=== PATIENT | male | born 1945 | race Hispanic/Latino ===

== ENCOUNTER 2018-05-18 14:11 | Emergency (ER) | payer BC ==
[2018-05-18 14:50] VITALS: BMI 31.6
[2018-05-18 14:54] VITALS: TEMP 97.8
--- NOTE | 2018-05-18 16:45 | RAD ---
Date of service: 05/18/2018 PROCEDURE: Pelvis and left hip HISTORY: r/o fx COMPARISON: TECHNIQUE: Three views FINDINGS: There is no evidence of fracture. There is no significant joint space narrowing. The pelvis is intact. IMPRESSION: Negative study
--- NOTE | 2018-05-18 16:47 | RAD ---
Date of service: 05/18/2018 PROCEDURE: Radiographs of the Lumbar Spine. HISTORY: r/o fx COMPARISON: No prior. FINDINGS: BONES: Normal alignment. No listhesis. No fracture. DISC SPACES: Disc degeneration at L5-S1 OTHER FINDINGS: There is facet arthropathy at L4-5 and L5-S1. IMPRESSION: Disc degeneration at L5-S1. Facet arthropathy at L4-5 and L5-S1
[2018-05-18 17:27] VITALS: BP 166/78; PULSE 62; RESP 16; O2SAT 99
--- NOTE | 2018-05-18 18:34 | ED PDOC ---
Arrival/HPI - General Chief Complaint: Back Pain Historian: Patient - History of Present Illness Narrative History of Present Illness (Text): 05/18/18 18:43 73 year old male, whose past medical history includes hypertension and cardiac disorders, who presents to the emergency department complaining of right back/hip pain over past 3-4 days. Patient is able to ambulate, but with pain. Patient states he has an appointment with Orthopedics in 3 days. Patient denies any trauma, falls, or any other complaints. Time/Duration: > week (pt notes onset as past 3-4 days) Symptom Onset: Sudden Symptom Course: Unchanged Activities at Onset: Light Past Medical History - Provider Review Nursing Documentation Reviewed: Yes - Infectious Disease Hx of Infectious Diseases: None - Cardiac Hx Cardiac Disorders: Yes Hx Hypertension: Yes - Pulmonary Hx Respiratory Disorders: No - Neurological Hx Neurological Disorder: No - HEENT Hx HEENT Disorder: No - Renal Hx Renal Disorder: No - Endocrine/Metabolic Hx Endocrine Disorders: No - Hematological/Oncological Hx Blood Disorders: No - Integumentary Hx Dermatological Disorder: No - Musculoskeletal/Rheumatological Hx Musculoskeletal Disorders: No - Gastrointestinal Hx Gastrointestinal Disorders: No - Genitourinary/Gynecological Hx Genitourinary Disorders: No - Psychiatric Hx Psychophysiologic Disorder: No Hx Substance Use: No Family/Social History - Physician Review Nursing Documentation Reviewed: Yes Family/Social History: No Known Family HX Smoking Status: Never Smoked Hx Alcohol Use: Yes Frequency of alcohol use: Daily Hx Substance Use: No Allergies/Home Meds Allergies/Adverse Reactions: Allergies No Known Allergies Allergy (Verified 05/18/18 14:50) Home Medications: Home Meds Medication Instructions Recorded Confirmed Aspirin [Aspirin Chewable] 81 mg PO DAILY 05/18/18 05/18/18 Clopidogrel [Plavix] 75 mg PO DAILY 05/18/18 05/18/18 Fluvastatin Sodium [Fluvastatin ER] 1 tab PO DAILY 05/18/18 05/18/18 Metoprolol Succinate [Kapspargo 25 mg PO DAILY 05/18/18 05/18/18 Sprinkle] [id number] Ethyl Esters [OMEGA 3] 1 tab PO DAILY 05/18/18 05/18/18 Review of Systems - Physician Review All systems were reviewed & negative as marked: Yes - Review of Systems Constitutional: Normal. absent: Fevers Musculoskeletal: Other (Patient notes right back/hip pain for past 3-4 days ). absent: Normal Neurological: Gait Changes (Patient notes he is able to ambulate, but with pain ). absent: Normal Physical Exam Vital Signs Reviewed: Yes Vital Signs Temp Pulse Resp BP Pulse Ox 05/18/18 17:00 62 16 166/78 H 99 05/18/18 14:53 97.8 F 56 L 18 172/71 H 97 Temperature: Afebrile Blood Pressure: Hypertensive Pulse: Tachycardic Respiratory Rate: Normal Appearance: Positive for: Well-Appearing, Non-Toxic Pain Distress: Mild Mental Status: Positive for: Alert and Oriented X 3 - Systems Exam Head: Present: Atraumatic, Normocephalic Pupils: Present: PERRL Extroacular Muscles: Present: EOMI Conjunctiva: Present: Normal Mouth: Present: Moist Mucous Membranes Neck: Present: Normal Range of Motion Respiratory/Chest: Present: Clear to Auscultation, Good Air Exchange. No: Respiratory Distress, Accessory Muscle Use Cardiovascular: Present: Regular Rate and Rhythm, Normal S1, S2. No: Murmurs Abdomen: Present: Normal Bowel Sounds. No: Tenderness, Distention, Peritoneal Signs Back: Present: Normal Inspection Upper Extremity: Present: Normal Inspection. No: Cyanosis, Edema Lower Extremity: Present: Normal Inspection. No: Edema Neurological: Present: GCS=15, CN II-XII Intact, Speech Normal Skin: Present: Warm, Dry, Normal Color. No: Rashes Psychiatric: Present: Alert, Oriented x 3, Normal Insight, Normal Concentration Medical Decision Making ED Course and Treatment: 05/18/18 18:30 Impression: 73 year old male presents to the emergency department for right back/hip pain over past 3-4 days. Differential Diagnosis included but are not limited to: Plan: -- X-ray of right hip w/ pelvis -- X-ray of LS with OBL -- Reassess and disposition Progress Notes: - RAD Interpretation Narrative RAD Interpretations (Text): X-ray of right hip w/ pelvis reviewed by radiologist, shows: Dictated By: Javon Vance MD Dictated Date/Time: 05/18/18 16:42 Impression: Negative study. X-ray of Lumbar Spine reviewed by radiologist, shows: Dictated By: Javon Vance MD Dictated Date/Time: 05/18/18 16:43 Impression: Disc degeneration at L5-S1. Facet arthropathy at L4-5 and L5-S1. Radiology Orders: 05/18/18 15:28 LS SPINE WITH OBL > 18 YRS OLD [RAD] Stat 05/18/18 15:29 HIP MIN 2V W/ PELVIS RT [RAD] Stat Natural Resource Specialist: Radiologist - Scribe Statement The provider has reviewed the documentation as recorded by the Scribe Milagros Ellis All medical record entries made by the Scribe were at my direction and personally dictated by me. I have reviewed the chart and agree that the record accurately reflects my personal performance of the history, physical exam, medical decision making, and the department course for this patient. I have also personally directed, reviewed, and agree with the discharge instructions and disposition. Disposition/Present on Arrival - Present on Arrival Any Indicators Present on Arrival: No History of DVT/PE: No History of Uncontrolled Diabetes: No Urinary Catheter: No History of Decub. Ulcer: No History Surgical Site Infection Following: None - Disposition Have Diagnosis and Disposition been Completed?: Yes Diagnosis: Low back pain Disposition: HOME/ ROUTINE Disposition Time: 16:50 Condition: GOOD Discharge Instructions (ExitCare): Low Back Pain (DC), Back Exercises, Sciatica Exercises Additional Instructions: JOSR MARTINEZ, thank you for letting us take care of you today. The emergency medical care you received today was directed at your acute symptoms. If you were prescribed any medication, please fill it and take as directed. It may take several days for your symptoms to resolve. Return to the Emergency Department if your symptoms worsen, do not improve, or if you have any other problems. Please contact your doctor or call one of the physicians/clinics you have been referred to that are listed on the Patient Visit Information form that is included in your discharge packet. Bring any paperwork you were given at discharge with you along with any medications you are taking to your follow up visit. Our treatment cannot replace ongoing medical care by a primary care provider outside of the emergency department. Thank you for allowing the [facility] team to be part of your care today. Follow up with the orthopedic doctor in 3 days as scheduled for re-evaluation and further management. Prescriptions: Cyclobenzaprine [Cyclobenzaprine HCl] 10 mg PO Q8 PRN #20 tab PRN Reason: Muscle Spasm Referrals: Javon Garcia, [Staff Provider] - Follow up with primary PCP,NO [Primary Care Provider] - Follow up with primary Forms: [employer] (deja mi) (Macedonian)
== END 2018-05-18 17:00 | disposition home or self-care (01) ==
LOC: ED 14:11
DX: M54.5 Low back pain (principal); I10 Essential (primary) hypertension